=== PATIENT | male | born 1990 | race Caucasian/White ===

== ENCOUNTER 2024-03-09 19:53 | Emergency (ER) | payer OTHER, SELFPAY ==
--- NOTE | ~2024-03-09 | XR_ITS ---
EXAMINATION: XR KNEE, RIGHT CLINICAL INFORMATION: Fall down stairs, pain/bruising COMPARISON: None available. TECHNIQUE: Four views of the right knee. FINDINGS: No fracture or joint effusion. Alignment is anatomic. Joint spaces are maintained. No abnormal soft tissue calcification. XR/XR knee RT 3V IMPRESSION: Normal right knee. Electronically signed by: Daniele Cortez MD 03/09/2024 10:13 PM EST
[2024-03-09 19:57] VITALS: BP 211/103; BP 226/140; PULSE 111; PULSE 122; RESP 16; TEMP 36.9; O2SAT 98; BMI 22.7
[2024-03-09 20:04] VITALS: BP 211/103; PULSE 111; RESP 16; TEMP 36.9; O2SAT 98
--- NOTE | 2024-03-09 20:43 | ED_ITS ---
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 patient's became combative and off feel all of his was fell down about 10 steps patient was in the bottom of the pile complaining of pain in the right knee prior to the fall patient did not have any complaints in the knee pain increases on ambulation with slight swelling no other injuries Related Data Previous Rx's ?Medication ?Instructions ?Recorded ibuprofen 600 mg tablet 600 mg PO Q6H PRN fever or pain 03/09/24 #30 tabs Allergies Allergy/AdvReac Type Severity Reaction Status Date / Time No Known Allergies Allergy Verified 03/09/24 20:03 [No Known Allergies*] Review of Systems Review of Systems: Yes all other systems are reviewed and are negative PMFSH Social History Social History Smoked in Last 30 Days: No Use of substances other than those prescribed or required for medical reasons: No Advance Directives: No Advance Directives Information Provided: Yes Do you have a plan to hurt others: No Plan Physical Exam ED Vital Signs: Vital Signs - 24 hr 03/09/24 19:57 03/09/24 20:04 03/09/24 21:20 Temperature 98.4 F 98.4 F 98.1 F Pulse Rate 111 H 111 H 98 Respiratory Rate 16 16 16 Blood Pressure 211/103 H 211/103 H 162/107 H Pulse Oximetry 98 98 98 Oxygen Delivery Method Room Air Room Air Room Air 03/09/24 21:55 03/09/24 21:56 Temperature 98.1 F Pulse Rate 98 Respiratory Rate 16 Blood Pressure 150/97 H 150/97 H Pulse Oximetry 98 Oxygen Delivery Method Room Air BMI result Body Mass Index 22.7 Appearance: Alert. Oriented X3. No acute distress. Eyes: No pallor or icterus ENT: Pharynx normal. Oral Mucosa moist atraumatic normocephalic Neck: Normal inspection. Neck supple. CVS: Normal heart rate and rhythm. Pulses normal. Respiratory: No respiratory distress. Equal air entry bilateral, no wheezing/rales/rhonchi Abdomen: Soft and nontender. Bowel sounds are present, no mass palpable, no CVA tenderness Skin: Skin warm and dry. Normal skin color. Normal skin turgor. Extremities: No lower extremity edema. No calf tenderness right knee no joint effusion tenderness in the medial joint line Miriam sign positive anterior drawer sign negative no deformity Neuro: Oriented X 3. No motor deficit. No sensory deficit.No cerebellar signs , cranial nerves II-XII intact Medications Administered Discontinued Medications Generic Name Dose Route Start Last Admin Trade Name Freq PRN Reason Stop Dose Admin Ibuprofen 600 mg 03/09/24 20:55 03/09/24 21:19 Ibuprofen 600 Mg Tablet PO 03/09/24 20:56 600 mg ONCE ONE Administration Medical Decision Making Medical Decision Making [facility] Narrative: Patient is status post fall with right knee pain clinically has medial meniscal strain , Miriam sign positive x-ray negative for acute patient was provided knee brace and crutches advised to follow with Orthopedics Independent Interpretation I performed an independent interpretation of an: Plain X-Ray Radiology Impression Discussion of test interpretation with radiology: I have reviewed the radiologist's reading. Radiologist Impression: XR/XR knee RT 3V IMPRESSION: Normal right knee. Discharge Plan Discharge Clinical Impression: Sprain of medial meniscus of right knee Patient Disposition: Home, Self-Care Instructions: Knee Sprain (ED) Additional Instructions: Wear knee immobilizer for next 2 weeks to heal completely Likely you have strain of your medial meniscus Follow up with Orthopedics/PCP for further management Crutches for support Ibuprofen for pain Your blood pressure was slightly elevated 150/97 in the right arm Follow with your PCP for further management decrease the salt intake Prescriptions: New ibuprofen 600 mg tablet 600 mg PO Q6H PRN (Reason: fever or pain) Qty: 30 0RF Interventions: ED Discharge Assessment Last Done: 03/09/24 21:56 Discharge Date/Time: 03/09/24 22:06 Print Language: Armenian
[2024-03-09] MEDS: Ibuprofen 600 MG TABLET PO (21:19)
[2024-03-09 21:20] VITALS: BP 162/107; PULSE 98; RESP 16; TEMP 36.7; O2SAT 98
[2024-03-09 21:55] VITALS: BP 150/97
[2024-03-09 21:56] VITALS: BP 150/97; PULSE 98; RESP 16; TEMP 36.7; O2SAT 98
== END 2024-03-09 22:06 | disposition home or self-care (01) ==
PROVIDERS: Emergency Provider Internal Medicine; PCP Internal Medicine
DX: S83.8X1A Sprain of other specified parts of right knee, initial encounter (principal); M25.561 Pain in right knee; W10.9XXA Fall (on) (from) unspecified stairs and steps, initial encounter; Y93.89 Activity, other specified; Y92.89 Other specified places as the place of occurrence of the external cause; Y99.8 Other external cause status
CPT/HCPCS: 73562; 99284

== ENCOUNTER → 2024-03-10 08:52 | Outpatient (BNVA) | payer OTHER, SELFPAY | PROVIDERS: PCP Internal Medicine; Visit Provider Internal Medicine | DX: Z09 Encounter for follow-up examination after completed treatment for conditions other than malignant neoplasm (principal); S80.01XA Contusion of right knee, initial encounter; S83.521A Sprain of posterior cruciate ligament of right knee, initial encounter; Y04.2XXA Assault by strike against or bumped into by another person, initial encounter | CPT/HCPCS: 99203 ==

== ENCOUNTER 2024-03-14 14:09 | Outpatient (AMB) | payer OTHER, SELFPAY ==
--- NOTE | 2024-03-14 14:15 | A.OFFVIS_ITS ---
Vital Signs 03/14/24 14:18 Height 5 ft 10 in Weight 220 lb BMI 31.6 Intake Visit Reasons: RAND [employer]TER- WC Right knee contusion DOI 03/09/24 Intake Note: Tejas 34 yr old right hand dominant male presents today for a new patient visit for his W/C injury to his right knee from DOI 03/09/24. 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 States he felt immediate pain and heard a pop. Seen in ED same day where xrays were taken and no fracture was confirm as per patient. Currently states it is painful to bear weight and is using crutches to ambulate. Denies numbness or tingling in toes. States his knee is swollen and is taking ibuprofen with good relief. Allergies No Known Allergies [No Known Allergies*] Allergy (Verified 03/14/24 14:18) Medication List - Last Reconciled 03/14/24 by Belkis Newman PA-C ibuprofen 600 mg PO Q6H PRN HPI HPI RAND BUTTER- WC Right knee contusion DOI 03/09/24: Details: 34-year-old right hand dominant male who presents to the office today for an evaluation of right knee injury at work, 03/09/24. 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 He states he felt immediate pain and heard a pop. He was seen at ED the same day where x-rays were performed. He currently states he has pain in his knee with weight bearing as well as swelling. He denies any numbness or tingling in toes. He uses crutches to ambulate. He takes ibuprofen for his swelling with good relief. He has been out of work since the date of injury. 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 Review of Systems Const All systems reviewed & are unremarkable except as noted in HPI and below Physical Exam Vital Signs: BMI result Body Mass Index 31.6 Const General: cooperative, healthy appearing, comfortable, no acute distress, well developed and alert Orientation/consciousness: patient oriented x3 HEENT Head: Yes normal to inspection, Yes normocephalic and Yes atraumatic Eyes General: appearance normal, both eyes and all related structures Resp Effort & Inspection: normal respiratory effort and able to speak in complete sentences Cardio Rate: regular rate Peripheral pulses: Peripheral pulses 2+ throughout GI Palpation (GI): Soft to palpation Skin Lesions: no lesions Rashes: no rashes Neuro General: patient oriented x3 Extrem Other: Right knee: Normal to inspection. He does have a moderate sized joint effusion with retropatellar tenderness. No defect, no muscle deformity along the quad tendon. He is able to performed SLR. Office Procedures AMB Joint Injection/Aspiration Joint Injection/Aspiration Primary Site: right knee (asp 45cc blood) Prep: site was prepped using aseptic technique and injection warnings given Injected: in the joint Approach Used: lateral parapatellar Procedure: The patient tolerated the procedure well Coding 96646 - Glenohumeral/Tronchanteric Bursa/Intraarticular Procedure code (CPT) selection complete Results Reviewed Results Reviewed: xrays of the right knee obtained on 03/09/24 are negative for acute fracture or dislocations. Assessment & Plan Assessment & Plan (1) Effusion, right knee: Code(s): M25.461 - Effusion, right knee Category: Medical (2) Internal derangement of right knee: Code(s): M23.91 - Unspecified internal derangement of right knee Category: Medical Plan Right knee aspiration performed today , 45cc blood which the patient tolerated well. A stat MRI of the right knee was ordered to further evaluate the source of his pain and swelling given the mechanism of his injury. He will remain out of work till follow-up and see me back once the scan is complete. He was also fit for a hinge knee brace. Orders: Orders MR knee RT wo con Today M23.91 - Unspecified internal derangement of right knee, M25.461 - Effusion, right knee Patient Instructions: Scribed for Belkis Newman PA-C, by Zackary Moreno medical research scientist, on 03/14/2024 at 2:15 PM EST.? I, Belkis Newman PA-C, have personally reviewed and agree with the information entered by the scribe. Coding Level of Care Code New Pt Level 4 (37537) Complex EM visit Add On G2211 Diagnoses Effusion, right knee M25.461 Internal derangement of right knee M23.91 CPT Codes Coding - Joint 7: 81988 - Glenohumeral/Tronchanteric Bursa/Intraarticular ([id number])
[2024-03-14 14:18] VITALS: BMI 31.6
== END 2024-03-14 14:47 | disposition home or self-care (01) ==
PROVIDERS: PCP Internal Medicine; Visit Provider Physician Assistant
DX: M25.461 Effusion, right knee (principal); M23.91 Unspecified internal derangement of right knee; Z04.2 Encounter for examination and observation following work accident; W10.8XXA Fall (on) (from) other stairs and steps, initial encounter
CPT/HCPCS: 20610; 99204

== ENCOUNTER → 2024-03-14 14:09 | Outpatient (BNVA) | payer OTHER, SELFPAY | PROVIDERS: PCP Internal Medicine; Visit Provider Physician Assistant | DX: M25.461 Effusion, right knee (principal); M23.91 Unspecified internal derangement of right knee | CPT/HCPCS: 20610; 99202 ==

== ENCOUNTER → 2024-03-17 09:12 | Outpatient (BNVA) | payer OTHER, SELFPAY | PROVIDERS: PCP Internal Medicine; Visit Provider Physician Assistant Medical | DX: S80.01XA Contusion of right knee, initial encounter (principal); S83.8X1A Sprain of other specified parts of right knee, initial encounter; W10.8XXA Fall (on) (from) other stairs and steps, initial encounter; Y04.2XXA Assault by strike against or bumped into by another person, initial encounter | CPT/HCPCS: 99213 ==

== ENCOUNTER 2024-03-21 14:56 | Outpatient (REF) | payer OTHER, BC, SELFPAY ==
--- NOTE | ~2024-03-21 | MR_ITS ---
EXAMINATION: MR KNEE WITHOUT CONTRAST, RIGHT CLINICAL INFORMATION: Knee effusion. Fall, pain. COMPARISON: None available. TECHNIQUE: MRI of the knee without contrast was performed using routine sequences on a high-field scanner. FINDINGS: MENISCI: Medial Meniscus: Superior surface fraying/tear of the posterior root/central posterior horn. Lateral Meniscus: Complex tear. Bucket-handle component of the tear, with torn meniscal tissue displaced into the intercondylar region and adjacent to the anterior horn.. Irregular tearing of the residual posterior horn. Inner margin blunting in the body. LIGAMENTS: Cruciate: Increased signal, attenuation and irregularity of the ACL, suspicious for a high-grade/full-thickness tear. Intact PCL. Collateral: Mild MCL sprain. Intact LCL complex. EXTENSOR MECHANISM: Intact ARTICULAR CARTILAGE/BONE: Patellofemoral Compartment: No significant chondral loss. Medial Compartment: Edema from bone contusion in the medial aspect of the medial femoral condyle. Prominent bone contusion in the mid/posterior aspect of the medial tibial plateau.. Lateral Compartment: Bone contusion in the lateral aspect lateral femoral condyle, with a subchondral curvilinear undisplaced fracture/trabecular microfracture. This measures approximately 1.5 cm AP, 1.5 cm transverse. Severe bone contusion in the central and lateral aspect of the tibial epiphysis and metaphysis. Possible component of undisplaced fracture planes/ trabecular microfractures. JOINT FLUID AND BURSAE: Large effusion. No significant Doe's cyst. Mild popliteus muscle edema could reflect strain versus reactive edema. Intact popliteus tendon. Proximal soleus muscle strain. MR/MR knee RT wo con IMPRESSION: 1. Complex tear of the lateral meniscus, with torn meniscal tissue displaced into the intercondylar region.. 2. Superior surface fraying/tear of the posterior root/central posterior horn of the medial meniscus. 3. High-grade/full-thickness ACL tear. 4. Mild MCL sprain. 5. Bone contusion in the medial femoral condyle and medial tibial plateau. 6. Lateral femoral condyle bone contusion, with a 1.5 x 1.5 cm undisplaced fracture/trabecular microfracture. Central and lateral tibial plateau prominent contusion. Possible component of undisplaced fracture planes/ trabecular microfractures. 7. Large effusion. 8. Mild popliteus muscle strain/reactive edema. Proximal soleus muscle strain. Electronically signed by: Gilberto Ly MD 03/21/2024 06:37 PM MARK
== END 2024-03-21 14:57 | disposition home or self-care (01) ==
LOC: HO.MRI 14:56
PROVIDERS: PCP Internal Medicine; Visit Provider Physician Assistant
DX: M25.461 Effusion, right knee (principal); M23.91 Unspecified internal derangement of right knee
CPT/HCPCS: 73721

== ENCOUNTER → 2024-04-08 08:51 | Outpatient (BNVA) | payer OTHER, SELFPAY | PROVIDERS: PCP Internal Medicine; Visit Provider Registered Nurse | DX: S83.511A Sprain of anterior cruciate ligament of right knee, initial encounter (principal); S83.501A Sprain of unspecified cruciate ligament of right knee, initial encounter; Y04.2XXA Assault by strike against or bumped into by another person, initial encounter | CPT/HCPCS: 99213 ==

== ENCOUNTER → 2024-04-22 08:53 | Outpatient (BNVA) | payer OTHER, SELFPAY | PROVIDERS: PCP Internal Medicine; Visit Provider Physician Assistant Medical | DX: S80.01XD Contusion of right knee, subsequent encounter (principal); S83.511D Sprain of anterior cruciate ligament of right knee, subsequent encounter; S83.271D Complex tear of lateral meniscus, current injury, right knee, subsequent encounter; M23.341 Other meniscus derangements, anterior horn of lateral meniscus, right knee; W10.8XXD Fall (on) (from) other stairs and steps, subsequent encounter | CPT/HCPCS: 99213 ==

== ENCOUNTER 2024-05-15 07:58 | Outpatient (RCR) | payer OTHER, BC, SELFPAY | END 2024-06-05 08:56 | disposition home or self-care (01) | LOC: HO.PT 07:58 | PROVIDERS: PCP Internal Medicine; Visit Provider Physician Assistant Medical | DX: S80.01XD Contusion of right knee, subsequent encounter (principal); M23.91 Unspecified internal derangement of right knee; S86.119D Strain of other muscle(s) and tendon(s) of posterior muscle group at lower leg level, unspecified leg, subsequent encounter | CPT/HCPCS: 97014; 97110; 97140; 97161 ==

== ENCOUNTER 2024-11-27 08:54 | Outpatient (RCR) | payer OTHER, SELFPAY | END 2024-12-15 14:49 | disposition home or self-care (01) | LOC: HO.PT 08:54 | PROVIDERS: PCP Internal Medicine; Visit Provider Orthopaedic Surgery | DX: S83.512D Sprain of anterior cruciate ligament of left knee, subsequent encounter (principal); Z98.890 Other specified postprocedural states | CPT/HCPCS: 97110; 97112; 97116; 97140; 97162; 97530 ==

== ENCOUNTER 2025-02-25 17:00 | Outpatient (RCR) | payer OTHER, BC, SELFPAY | END 2025-02-27 09:22 | disposition home or self-care (01) | LOC: HO.PT 17:00 | PROVIDERS: PCP Internal Medicine; Visit Provider Physician Assistant | DX: Z47.89 Encounter for other orthopedic aftercare (principal) | CPT/HCPCS: 97110; 97112; 97140; 97162; 97530 ==